=== PATIENT | female | born 1970 | race Hispanic/Latino ===

== ENCOUNTER 2017-05-31 10:38 | Emergency (ER) | payer SELFPAY ==
[2017-05-31] MEDS ORDERED: Acetaminophen 500 MG TAB ONE (11:47)
[2017-05-31 11:52] LABS: Bilirubin Small (Negative); Blood, Urine Moderate (Negative); Glucose, Urine (Dipstick) Negative (Negative); Ketone, Urine Negative (Negative); Nitrite Negative (Negative); Protein, Urine (Dipstick) 30 mg/dL (Neg-Trace)
[2017-05-31 11:54] LABS: Bacteria/HPF 2+ HPF (None Seen); Hyaline Casts/LPF 4-6 HYALINE CAST LPF (0-3 Hyaline)
[2017-05-31 12:20] LABS: #Eosinphils 0.1 thou/uL (0.0-0.7); #Lymphocytes 1.8 thou/uL (1.20-3.40); #Monocytes 0.7 thou/uL (0.11-0.59); #Neutrophils 8.8 thou/uL (1.40-6.50); %Basophils 0.3 % (0.0-1.0); %Eosinophils 0.8 % (0.0-10.0); %Lymphocytes 15.6 % (21.0-51.0); %Monocytes 6.3 % (0.0-10.0); Hematocrit 55.5 % (36.0-47.0); Mean Platelet Volume 7.9 fL (7.4-10.4); Red Blood Cell (RBC) Count 6.14 mill/uL (4.20-5.40); White Blood Cell (WBC) Count 11.4 thou/uL (4.8-10.8)
[2017-05-31 12:29] LABS: ALT (SGPT) 17 U/L (8-55); AST (SGOT) 14 U/L (5-34); Alkaline Phosphatase 105 U/L (40-150); Anion Gap 11 mmol/L (10-20); BUN (Urea Nitrogen) 11 mg/dL (7.0-18.7); Bilirubin, Total 0.8 mg/dL (0.2-1.2); Calc. Creatinine Clearance 0 mL/min (70-130); Calcium 9.1 mg/dL (7.8-10.44); Carbon Dioxide 33 mmol/L (22-29); Chloride 100 mmol/L (98-107); Estimated GFR-MDRD 89; Globulin 4.1 g/dL (2.4-3.5); Lipase 4 U/L (8-78); Protein, Total 7.8 g/dL (6.0-8.3)
== END 2017-05-31 13:55 | disposition home or self-care (01) ==
LOC: ERS 10:38
DX: S39.011A Strain of muscle, fascia and tendon of abdomen, initial encounter (principal); N39.0 Urinary tract infection, site not specified; G47.30 Sleep apnea, unspecified; Z79.899 Other long term (current) drug therapy; X58.XXXA Exposure to other specified factors, initial encounter
CPT/HCPCS: 36415; 80053; 81003; 81015; 83690; 84703; 85025; 99284

== ENCOUNTER 2017-08-15 08:18 | Emergency (ER) | payer SELFPAY ==
--- NOTE | 2017-08-15 09:07 | RAD ---
FRONTAL VIEW CHEST: Comparison: 12-16-15 Indication: Cough. FINDINGS: There is enlargement of the cardiac silhouette. Left lung base is obscured by the enlarged cardiac si lhouette. Otherwise, no obvious consolidation or significant effusion. There is mild vascular promine nce at each hilar region. IMPRESSION: Evidence of CHF. Obscuration of left lung base by the enlarged cardiac silhouette limits detail. POS: CELESTINO
[2017-08-15 09:56] LABS: #Eosinphils 0.1 thou/uL (0.0-0.7); #Lymphocytes 1.9 thou/uL (1.20-3.40); #Monocytes 0.4 thou/uL (0.11-0.59); #Neutrophils 5.7 thou/uL (1.40-6.50); %Basophils 0.5 % (0.0-1.0); %Monocytes 4.8 % (0.0-10.0); Hematocrit 54.5 % (36.0-47.0); Mean Platelet Volume 7.9 fL (7.4-10.4); Red Blood Cell (RBC) Count 6.09 mill/uL (4.20-5.40); White Blood Cell (WBC) Count 8.1 thou/uL (4.8-10.8)
[2017-08-15 09:59] LABS: ALT (SGPT) 18 U/L (8-55); AST (SGOT) 15 U/L (5-34); Alkaline Phosphatase 98 U/L (40-150); BUN (Urea Nitrogen) 9 mg/dL (7.0-18.7); Bilirubin, Total 0.8 mg/dL (0.2-1.2); Calc. Creatinine Clearance 0 mL/min (70-130); Calcium 9.2 mg/dL (7.8-10.44); Estimated GFR-MDRD 87; Globulin 3.6 g/dL (2.4-3.5); Protein, Total 7.1 g/dL (6.0-8.3)
[2017-08-15 10:05] LABS: Troponin I Less than 0.010 ng/mL (< 0.028)
[2017-08-15 10:08] LABS: Anion Gap 11 mmol/L (10-20); Carbon Dioxide 35 mmol/L (22-29); Chloride 100 mmol/L (98-107)
[2017-08-15] MEDS ORDERED: Furosemide 40 MG TAB ONE (10:47)
[2017-08-15] MEDS ORDERED: Benzonatate 100 MG CAP ONE (10:47)
== END 2017-08-15 11:25 | disposition home or self-care (01) ==
LOC: ERS 08:18
DX: I50.9 Heart failure, unspecified (principal); J06.9 Acute upper respiratory infection, unspecified; G47.30 Sleep apnea, unspecified; Z79.899 Other long term (current) drug therapy
CPT/HCPCS: 36415; 71010; 80053; 82553; 83880; 84484; 85025; 93005

== ENCOUNTER 2017-09-08 15:57 | Emergency (ER) | payer SELFPAY ==
[2017-09-08] MEDS ORDERED: Acetaminophen/Codeine 30-300mg Tablet ONE (17:01)
== END 2017-09-08 17:15 | disposition home or self-care (01) ==
LOC: ERS 15:57
DX: S39.011A Strain of muscle, fascia and tendon of abdomen, initial encounter (principal); G47.30 Sleep apnea, unspecified; X50.1XXA Overexertion from prolonged static or awkward postures, initial encounter
CPT/HCPCS: 99283

== ENCOUNTER 2018-01-20 08:23 | Emergency (ER) | payer SELFPAY ==
--- NOTE | 2018-01-20 09:03 | RAD ---
TWO VIEWS CHEST: Comparison: 09-26-16, 08-15-17 History: Cough. FINDINGS: Enlarged cardiac silhouette. Pulmonary vessels and hilum are normal. Costophrenic angles are clear. P atchy interstitial opacities. There is no pneumothorax or osseous abnormality. IMPRESSION: Patchy interstitial opacities suggesting edema or infiltrate. Continued surveillance. POS: [facility]
== END 2018-01-20 13:34 | disposition home or self-care (01) ==
LOC: ERS 08:23
DX: J30.9 Allergic rhinitis, unspecified (principal); I10 Essential (primary) hypertension; G47.30 Sleep apnea, unspecified
CPT/HCPCS: 71046

== ENCOUNTER 2018-08-03 09:24 | Inpatient (IN) | payer SELFPAY ==
[2018-08-03] MEDS ORDERED: methylPREDNISolone Sod Succ/PF 125 MG/2 ML VIAL ONE (09:40)
[2018-08-03] MEDS ORDERED: Water For Inject, Bacteriostat 30 ML ONE (09:40)
[2018-08-03 10:37] LABS: Hemoglobin 16.4 g/dL (12.0-16.0); Mean Corpuscular HGB CONC 30.6 g/dL (32.0-36.0); Mean Corpuscular Hemoglobin 28.4 pg (27.0-31.0); Mean Corpuscular Volume 92.9 fL (78.0-98.0); Mean Platelet Volume 8.6 fL (7.4-10.4); Platelet Count 189 thou/uL (130-400); RBC Distribution Width 15.5 % (11.5-14.5); Red Blood Cell (RBC) Count 5.78 mill/uL (4.20-5.40); White Blood Cell (WBC) Count 9.1 thou/uL (4.8-10.8)
[2018-08-03 10:42] LABS: ALT (SGPT) 14 U/L (8-55); AST (SGOT) 16 U/L (5-34); Albumin 3.4 g/dL (3.5-5.0); Alkaline Phosphatase 104 U/L (40-150); Anion Gap 14 mmol/L (10-20); BUN (Urea Nitrogen) 15 mg/dL (7.0-18.7); Bilirubin, Total 0.6 mg/dL (0.2-1.2); CK (CPK) 27 U/L (29-168); Calc. Creatinine Clearance 0 mL/min (70-130); Calcium 9.2 mg/dL (7.8-10.44); Carbon Dioxide 32 mmol/L (22-29); Chloride 99 mmol/L (98-107); Estimated GFR-MDRD 87; Glucose 106 mg/dL (70-105); Potassium 4.4 mmol/L (3.5-5.1); Protein, Total 7.4 g/dL (6.0-8.3); Sodium 141 mmol/L (136-145)
[2018-08-03 10:46] LABS: CKMB 1.7 ng/mL (0-6.6); Troponin I Less than 0.010 ng/mL (< 0.028)
--- NOTE | 2018-08-03 10:48 | RAD ---
CHEST ONE VIEW: INDICATIONS: History of chest congestion. COMPARISON: 01/20/2018. FINDINGS/IMPRESSION: There is cardiomegaly with pulmonary vascular congestion and perihilar edema. No pleural effusion or pneumothorax is evident. IMPRESSION: Findings suspicious for congestive heart failure. POS: CELESTINOH
[2018-08-03 10:59] LABS: #Lymphocytes 0.8 thou/uL (1.20-3.40); #Monocytes 0.6 thou/uL (0.11-0.59); #Neutrophils 7.8 thou/uL (1.40-6.50); %Basophils 0.1 % (0.0-1.0); %Eosinophils 0.3 % (0.0-10.0); %Lymphocytes 8.3 % (21.0-51.0); %Neutrophils 85.4 % (42.0-75.0); MDiff Complete? YES; Macrocytosis MODERATE=16-30 cells (100X) (0-5/hpf); PLT Morphology Comment Appears Adequate; Polychromasia MODERATE = 3-4 cells (100X) (0-2/hpf)
[2018-08-03 11:22] LABS: BHCG - Serum Negative (NEGATIVE); Pregs Control Background? CLEAR/WHITE (CLR/WHITE); Pregs Control Bar Appear? YES (CONTROL BAR)
[2018-08-03] MEDS ORDERED: Nitroglycerin 2% Ointment 1 INCH/1 GM Packet ONE (12:25)
[2018-08-03] MEDS ORDERED: Furosemide 40 MG/4 ML VIAL ONE ×2 (12:25→20:59)
--- NOTE | 2018-08-03 12:26 | CT ---
CTA THORAX WITH CONTRAST: DATE: 08/03/2018 TIME: 11:43 a.m. (Computed Tomographic Angiography, chest(noncoronary) with contrast material, and image post processi ng) (PE protocol) HISTORY: A 47-year-old female with dyspnea. COMPARISON: 09/26/2016 TECHNIQUE: IV injection of iodinated contrast: Isovue-370 100 mL. Scan acquisition timing attempted to coincide with iodinated contrast bolus reaching maximal density in pulmonary arteries. 3D MIP reconstructions. FINDINGS: There is no pulmonary thromboembolism in the pulmonic trunk or the left and right main pulmonary alexus nadiya or their proximal branches. The distal branches are difficult to evaluate because of body habit us. There is dilation of the pulmonic trunk and the left and right main pulmonary arteries, and the proximal branches, raising the possibility of pulmonary arterial hypertension. There is cardiomegaly with four chamber dilation. Again demonstrated are the numerous moderately enlarged mediastinal lym ph nodes. These have increased in size in the right paratracheal region. There are also mildly enla rged lymph nodes in the aortopulmonic window. Subcarinal lymphadenopathy has become worse. There is also mild bilateral hilar lymphadenopathy, right greater than left. Previously, there was a small l eft pleural effusion and a left lower lobe consolidation. Those are no longer present. Currently, n o pleural effusion or pneumothorax. There is a new finding of diffuse bilateral ground glass densiti es throughout both lungs, consistent with pulmonary interstitial edema. Ectasia and tortuosity of th e thoracic aorta without aneurysm. IMPRESSION: 1. Pulmonary interstitial edema and cardiomegaly are suggestive of congestive heart failure. 2. Interval worsening of mediastinal lymphadenopathy. 3. Dilated central pulmonary arteries, raising the possibility of pulmonary artery hypertension. Re commend clinical correlation. 4. No pulmonary thromboembolism identified. renetta[] POS: [facility]END[facility]
[2018-08-03 14:15] LABS: Troponin I Less than 0.010 ng/mL (< 0.028)
[2018-08-03] MEDS ORDERED: Ondansetron ODT 4 MG TAB PO PRN (15:50)
[2018-08-03] MEDS ORDERED: Acetaminophen 325 MG TAB PO PRN (15:50)
[2018-08-03] MEDS ORDERED: Iopamidol 370 76% 100 ML VIAL ONE (16:37)
[2018-08-03 17:32] LABS: Troponin I Less than 0.010 ng/mL (< 0.028)
[2018-08-03] MEDS: cefTRIAXone\\ROCEPHIN 2 GM in Sodium Chloride 0.9% 100 ML IVPB SCH (18:05)
[2018-08-03 18:18] VITALS: BMI 64.0
[2018-08-03] MEDS ORDERED: Furosemide 40 MG/4 ML VIAL SLOW IVP SCH (21:15)
[2018-08-03 21:39] LABS: Actual Bicarbonate (HCO3a) 40.9 mEq/L (22-28); Base Excess (BEa) 6.2 mEq/L (-2.0 to +3.0); CO2 Tension 118.8 mmHg (35.0-45.0); O2 Tension (PaO2) 67.2 mmHg (80.0-100.0); pH, Arterial 7.16 (7.35-7.45)
[2018-08-03 21:40] LABS: Analyzer IN Cardio OR; Calcium, Ionized 1.19 mmol/L (1.12-1.30); Carboxyhemoglobin (COHb) 2.5 gm% (0.0-3.0); Hemoglobin (Hb) 17.4 g/dL (12.0-16.0); Potassium - ABG Lab 4.32 mmol/L (3.70-5.30); Puncture Site RRA
[2018-08-03 22:16] LABS: Base Excess (BEa) 11.4 mEq/L (-2.0 to +3.0); Calcium, Ionized 1.21 mmol/L (1.12-1.30); Carboxyhemoglobin (COHb) 2.4 gm% (0.0-3.0); Hemoglobin (Hb) 16.6 g/dL (12.0-16.0); O2 Tension (PaO2) 76.6 mmHg (80.0-100.0); Potassium - ABG Lab 4.45 mmol/L (3.70-5.30); pH, Arterial 7.26 (7.35-7.45)
[2018-08-03 22:19] LABS: ALV-art Gradient 83.725 (0-20); CO2 Tension 99.9 mmHg (35.0-45.0); Puncture Site RRAD
--- NOTE | 2018-08-03 22:27 | PDOC.EVN ---
Event Note - Event Note Event Note: I was called to evaluate Courtney Persaud Patient was found to be in Resp. distress and desaturating in the 80's when patient falls asleep. When patient is awake, patient saturates around 90's. Patient was admitted for CHF exacerbation. Upon Evaluation Patient Vitals are 160/101 and patient is on a venti-mask. Patient is not using accessory muscles to breath as of yet but patient is clearly breathing through her mouth. Patient is Morbidly obese female. B/L 2+ L/ E edema. Rales in both lungs b/l. otherwise PE WNL Assessment and plan: - Acute hypercapnic and hypoxemic resp failure: ABG's ordered. CCU transfer. BIPAP ordered with setting of 20/12 per Pulm's recs. WIll monitor patient closely. Repeat ABG in 1hr to see it here is improvement in Acid base status. - CHF exacerbation: lasix given. will f/u morning labs. - OHS: continue with BIPAP. Check ABG's. continue current managment critical care time >35mins.
[2018-08-04 03:53] LABS: Actual Bicarbonate (HCO3a) 48.4 mEq/L (22-28); Base Excess (BEa) 14.4 mEq/L (-2.0 to +3.0); Calcium, Ionized 1.22 mmol/L (1.12-1.30); Carboxyhemoglobin (COHb) 2.3 gm% (0.0-3.0); Hemoglobin (Hb) 16.7 g/dL (12.0-16.0); O2 Tension (PaO2) 65.4 mmHg (80.0-100.0); Potassium - ABG Lab 4.38 mmol/L (3.70-5.30)
[2018-08-04 04:00] LABS: ALV-art Gradient 6.375 (0-20); CO2 Tension 113.7 mmHg (35.0-45.0); Puncture Site RRAD; pH, Arterial 7.25 (7.35-7.45)
[2018-08-04 04:34] LABS: BUN (Urea Nitrogen) 18 mg/dL (7.0-18.7); Calc. Creatinine Clearance 221 mL/min (70-130); Calcium 9.3 mg/dL (7.8-10.44); Estimated GFR-MDRD 84; Glucose 102 mg/dL (70-105)
[2018-08-04 04:43] LABS: Band 11 % (5-11); Hemoglobin 16.3 g/dL (12.0-16.0); Lymphocytes 8 % (21-51); MDiff Complete? YES; Mean Corpuscular HGB CONC 29.9 g/dL (32.0-36.0); Mean Corpuscular Hemoglobin 27.9 pg (27.0-31.0); Mean Corpuscular Volume 93.1 fL (78.0-98.0); Mean Platelet Volume 8.4 fL (7.4-10.4); Monocytes 6 % (0-10); Neutrophil 75 % (42-75); PLT Morphology Comment Appears Adequate; Platelet Count 200 thou/uL (130-400); RBC Distribution Width 15.6 % (11.5-14.5); Red Blood Cell (RBC) Count 5.87 mill/uL (4.20-5.40); White Blood Cell (WBC) Count 7.6 thou/uL (4.8-10.8)
[2018-08-04 04:44] LABS: Anion Gap 19 mmol/L (10-20); Carbon Dioxide 33 mmol/L (22-29); Chloride 96 mmol/L (98-107); Potassium 4.5 mmol/L (3.5-5.1); Sodium 143 mmol/L (136-145)
--- NOTE | 2018-08-04 07:51 | HP ---
CHIEF COMPLAINT: Sudden onset of cough with sputum. HISTORY OF PRESENT ILLNESS: This is a morbidly obese 47-year-old female with a history of congestive heart failure, hypertension, morbid obesity, and sleep apnea, presented to the ER with sudden onset of cough and shortness of breath. Family does report that with the coughing spells, the patient almost turns blue. The patient is not on any home oxygen. Over here, the patient has scattered wheezes and her O2 sats in low 80s. The patient denies any fever or even sensation of shortness of breath. Denied any nausea, vomiting, diarrhea, or any headaches. PAST MEDICAL HISTORY: Significant for morbid obesity, hypertension, sleep apnea , wears oxygen at night at home. PAST SURGICAL HISTORY: Significant for appendectomy, cholecystectomy, C- section x2, ovarian cyst removal several years ago. PSYCHIATRIC HISTORY: No previous psychiatric history. SOCIAL HISTORY: Denies any alcohol or drug abuse. She has no smoking history. ALLERGIES: THE PATIENT HAS NO KNOWN DRUG ALLERGIES. REVIEW OF SYSTEMS: CONSTITUTIONAL: The patient denies any chills or fever. HEENT: The patient complains of congestion and for details, please see HPI. RESPIRATORY: Complains of cough and wheezing, but no complaints of shortness of breath. CHEST: No complaints of chest pain or palpitations. GASTROINTESTINAL: Negative for any nausea, vomiting, diarrhea, or constipation. GENITOURINARY: Denies any complaints of dysuria or urgency. NEUROLOGIC: Denies any headache or mental status changes or any weaknesses or focal deficits. ALLERGIES: Denies any history of allergies. PHYSICAL EXAMINATION: VITAL SIGNS: Blood pressure 122/72, pulse 82, respiratory rate 20, and temperature 98.2. O2 saturation on room air was 71% and on 3 L was 100%. CONSTITUTIONAL: Vital signs reviewed. The patient is afebrile. Other than pulse ox is low on room air, rest is all within normal limits, morbid obesity. HEENT: Normocephalic and atraumatic head. External ears and tympanic membrane are within normal limits. Eyelids and conjunctivae are within normal limits. Pupils are round and reactive to light. NECK: Trachea is midline and within normal limit range of motions of the neck. RESPIRATORY/CHEST: Scattered wheezing all over, decreased air movement throughout. CARDIOVASCULAR: Regular rate and rhythm. No murmurs. No gallops. ABDOMEN: Soft, nontender, and nondistended. No masses. Positive bowel sounds. MUSCULOSKELETAL: No pedal edema. No pitting edema. No joint swelling or effusion. NEUROLOGIC: Within normal limits. Cranial nerves are within normal limits. No focal motor or sensory deficits noted. RADIOLOGY DATA: X-ray of the chest shows pulmonary edema. Chest CTA shows diffuse mediastinal lymphadenopathy, pulmonary edema, no signs of pneumonia. ASSESSMENT AND PLAN: 1. Acute on chronic congestive heart failure, systolic. Continue with the IV Lasix and strict Is and Os. 2. Possible upper respiratory infection. We will start on erythromycin IV and also Rocephin IV. The patient has failed outpatient Levaquin. 3. History of hypertension. We will hold lisinopril right now with a slight increase in her creatinine. We will follow up with creatinine and reintroduce her lisinopril as required. 4. Sleep apnea. We will order for nasal cannula oxygen p.r.n. to maintain the O2 sats over 92%. 5. Morbid obesity. Consult the patient again. 6. Weight gain. Consult for exercise and have the low-fat diet. 7. We will obtain an echocardiogram to evaluate the heart functions. 8. Influenza A and B are negative. Job ID: [id number] MTDD
[2018-08-04] MEDS: Enoxaparin Sodium 40 MG/0.4 ML SYRINGE SC SCH (08:08)
[2018-08-04] MEDS ORDERED: acetaZOLAMIDE Sodium 500 MG in Sodium Chloride 0.9% 50 ML IVPB SCH (09:00)
[2018-08-04] MEDS ORDERED: Furosemide 40 MG/4 ML VIAL SLOW IVP SCH (09:00)
--- NOTE | 2018-08-04 12:42 | CON ---
DATE OF CONSULTATION: 08/04/2018 35 minutes of critical care time. CONSULTING PHYSICIAN: Dr. Sommers. REASON FOR CONSULTATION: Hypercapnic respiratory failure. HISTORY OF PRESENT ILLNESS: This is a 47-year-old female with morbid obesity, who has been seen by my partner, Dr. Umanzor in the past. She has a known history of sleep apnea but has never undergone any type of diagnostic testing in the past secondary to her financial situation. She was last seen by our group a couple of years ago. She came in with a 2-day history of cough and shortness of breath. She was initially placed on telemetry. She was put on a Ventimask, but became sleepy. Blood gas was drawn showing severe hypercapnia with a pCO2 of 120. PAST MEDICAL HISTORY: 1. Probable KRANTHI. 2. Chronic hypoxic and hypercapnic respiratory failure. 3. Morbid obesity. 4. Community-acquired pneumonia. 5. Diabetes mellitus. 6. Gastroesophageal reflux. 7. Lower extremity edema. PAST SURGICAL HISTORY: , appendectomy, and ovarian resection. MEDICATIONS: Prior to admission; 1. Nasacort Allergy 24 two sprays each nostril daily as needed. 2. Potassium chloride 40 mEq daily. 3. Lisinopril 20 mg daily. 4. Furosemide 40 mg daily. 5. Albuterol HFA 2 puffs every 6 hours as needed. Current inpatient medications: 1. Tylenol. 2. DuoNeb. 3. Ceftriaxone. 4. Lovenox. 5. Lasix. 6. Ondansetron. ALLERGIES: NONE. FAMILY MEDICAL HISTORY: Unremarkable. SOCIAL HISTORY: Does not smoke. Does not consume alcohol. REVIEW OF SYSTEMS: Cannot be obtained. She is currently on BiPAP. PHYSICAL EXAMINATION: VITAL SIGNS: Temperature 99.2, pulse 56, blood pressure 136/103, and O2 sat 96% on BiPAP. GENERAL: The patient is easily awakened, does not appear to be in any distress on the BiPAP. HEENT: Class IV Mallampati airway. NECK: No JVD. LUNGS: Distant breath sounds. CARDIAC: S1 and S2. Regular. ABDOMEN: Morbidly obese. EXTREMITIES: Edematous. LABORATORY DATA: White blood cell count 7.6, hematocrit 54.6, and platelet count 200. PH of 7.25, pCO2 of 113, pO2 of 65, it was on BiPAP 25/15 with 30% FiO2. Sodium 143, potassium 4.5, chloride 96, CO2 of 33, BUN 18, creatinine 0.7, and glucose 102. BNP 315. ASSESSMENT: 1. Acute on chronic hypercapnic respiratory failure. This is probably secondary to Pickwickian syndrome, although it is noted that her serum bicarbonate is much less than would be predicted with this high of a pCO2. 2. Cor pulmonale. RECOMMENDATIONS: I do not think patient needs to be intubated. I will continue the BiPAP as needed throughout the day and definitely keep her on that at night. I would stop the Lasix and use Diamox instead. I will notify Dr. Umanzor of the patient's hospitalization. Job ID: [id number]
[2018-08-04] MEDS: cefTRIAXone\\ROCEPHIN 2 GM in Sodium Chloride 0.9% 100 ML IVPB SCH (16:33)
--- NOTE | 2018-08-04 19:18 | PDOC.PN ---
- Subjective Encounter Start Date: 08/04/18 Encounter Start Time: 19:00 Subjective: f/u for acute/chronic hypoxic/hypercapnic resp failure on previous -: BiPAP. Feels ok currently and less coughing. - Objective Resuscitation Status - Order Detail: 08/03/18 15:50 Resuscitation Status Routine Resuscitation Status: FULL: Full Resuscitation MAR Reviewed: Yes Vital Signs & Weight: Vital Signs (12 hours) Temp Pulse Resp Pulse Ox 08/04/18 18:34 93 L 08/04/18 18:29 67 20 93 L 08/04/18 16:00 98.7 F 08/04/18 14:11 67 27 H 92 L 08/04/18 12:00 98.8 F 08/04/18 11:04 59 L 17 96 08/04/18 08:00 100 08/04/18 07:25 47 L 91 L 08/04/18 07:24 47 L 18 91 L Weight Weight 328 lb Most Recent Monitor Data Heart Rate from ECG 57 NIBP 142/90 NIBP BP-Mean 107 Respiration from ECG 19 SpO2 92 I&O: 08/03/18 08/04/18 08/05/18 06:59 06:59 06:59 Intake Total 360 Output Total 1435 455 Balance -1435 -95 Result Diagrams: 08/04/18 04:06 08/04/18 04:06 Additional Labs: Microbiology 09/26/16 23:12 Venous blood - Left Hand Blood Culture - Preliminary Specimen has been received and culture in progress. No Growth to date. 09/26/16 23:06 Venous blood - Right Hand Blood Culture - Preliminary Specimen has been received and culture in progress. No Growth to date. Laboratory Tests 09/26/16 08/15/17 08/03/18 23:06 09:26 10:11 Hgb 16.4 H Hct 53.7 H Bicarbonate Actual ABG pH ABG pCO2 ABG pO2 ABG O2 Sat Calc/Karina Mode of Support Inspired O2 Peak Inspir Pressure PEEP or CPAP Carbon Dioxide 34 H B-Natriuretic Peptide 103.9 H 08/03/18 08/04/18 10:11 03:50 Hgb Hct Bicarbonate Actual 48.4 H ABG pH 7.25 L* ABG pCO2 113.7 H* ABG pO2 65.4 L ABG O2 Sat Calc/Karina 91.1 L Mode of Support BIPAP Inspired O2 30 Peak Inspir Pressure 25 PEEP or CPAP 15.0 Carbon Dioxide B-Natriuretic Peptide 315.0 H Radiology Reviewed by me: Yes (CTA chest - interstitial edema) EKG Reviewed by me: Yes (Tele - SR) Phys Exam - Physical Examination Constitutional: NAD alert, responsive HEENT: PERRLA, sclera anicteric, oral pharynx no lesions Neck: no nodes, no JVD, supple, full ROM diminished in bases S1, S2 Cardiovascular: RRR, no significant murmur, no rub, gallop obese Gastrointestinal: soft, non-tender, no distention, positive bowel sounds Musculoskeletal: pulses present, edema present Neurological: normal sensation, moves all 4 limbs Psychiatric: A&O x 3 Skin: normal turgor, cap refill <2 seconds Dx/Plan (1) Acute on chronic respiratory failure with hypoxia and hypercapnia Code(s): J96.21 - ACUTE AND CHRONIC RESPIRATORY FAILURE WITH HYPOXIA; J96.22 - ACUTE AND CHRONIC RESPIRATORY FAILURE WITH HYPERCAPNIA Status: Acute Comment : Continue Duonebs, Dulera, Mucinex, Solumedrol 40mg IV q6h (2) Acute diastolic CHF (congestive heart failure) Code(s): I50.31 - ACUTE DIASTOLIC (CONGESTIVE) HEART FAILURE Status: Acute (3) Morbid obesity with BMI of 60.0-69.9, adult Code(s): E66.01 - MORBID (SEVERE) OBESITY DUE TO EXCESS CALORIES; Z68.44 - BODY MASS INDEX (BMI) 60.0-69.9, ADULT Status: Chronic (4) KRANTHI (obstructive sleep apnea) Code(s): G47.33 - OBSTRUCTIVE SLEEP APNEA (ADULT) (PEDIATRIC) Status: Suspected Comment: Nocturnal CPAP with PEEP 5, FIO2 30% - Plan continue antibiotics, PT/OT, respiratory therapy, out of bed/ambulate, DVT proph w/SCDs Continue pulmonary support -: Diamox 500mg IV q12h -: BiPAP while sleeping -: CM assistance for home CPAP/BiPAP -: Continue Rocephin * .
[2018-08-04] MEDS: Sterile Water 10 ML VIAL FS SCH (22:00)
[2018-08-04] MEDS: acetaZOLAMIDE Sodium 500 mg Vial IVP SCH (22:00)
[2018-08-05] MEDS: Sterile Water 10 ML VIAL FS SCH ×2 (09:25→20:46)
[2018-08-05] MEDS: Enoxaparin Sodium 40 MG/0.4 ML SYRINGE SC SCH (09:25)
[2018-08-05] MEDS: acetaZOLAMIDE Sodium 500 mg Vial IVP SCH ×2 (09:25→20:45)
[2018-08-05] MEDS ORDERED: Furosemide 20 MG/2 ML VIAL SLOW IVP SCH (15:30)
--- NOTE | 2018-08-05 15:53 | PRG ---
DATE OF SERVICE: 08/05/2018 SERVICE: Pulmonary Medicine. INTERVAL HISTORY: The patient is doing great from a respiratory standpoint. Denies any current chest pain, fevers, or chills. There has been no interval change to her condition. PHYSICAL EXAMINATION: VITAL SIGNS: Afebrile, pulse 55, blood pressure 116/76, respirations 16, and saturation 98% on 2 L nasal cannula. GENERAL: The patient is awake, alert, in no apparent distress. LUNGS: Decent air entry. Dependent crackles are minimal. There is no prolonged expiratory phase. I do not appreciate any wheezing or rhonchi. HEART: Normal rate and regular. ABDOMEN: Soft, nontender, and nondistended. Bowel sounds are positive. MUSCULOSKELETAL: No cyanosis or clubbing. No pitting in the bilateral lower extremities. NEUROLOGIC: Grossly nonfocal. LABORATORY DATA: WBC 7.6, hemoglobin 16.3, and platelets 200,000. PH 7.25, pCO2 of 113, pO2 of 65. Basic metabolic profile is otherwise unremarkable. Troponin is negative x3. BNP previously 315. LFTs were unremarkable. Blood cultures x2 and influenza A and B are negative. IMAGING STUDIES: CTA of the chest demonstrates no evidence for pulmonary embolism. Interstitial edema and cardiomegaly are present. Mediastinal lymphadenopathy is noted. Pulmonary hypertension is likely. ASSESSMENT: 1. Chronic hypoxic and hypercapnic respiratory failure. 2. Morbid obesity. 3. Obesity hypoventilation syndrome. 4. Obstructive sleep apnea, likely life threatening. 5. Pulmonary hypertension, multifactorial. DISCUSSION AND PLAN: We will continue to diurese the patient through time. From my perspective, the patient is stable for transition out of the hospital provided that we should continue her BiPAP at night for the time being for her obstructive sleep apnea. Pulmonary Critical Care will continue to follow along while she remains in-house. Ultimately, she will require an autotitrating BiPAP on discharge from the hospital. I have counseled her regarding her weight. She understands that at this point her life, if she does not systematically start to lose weight, there is a very good possibility that she could from the weight. After talking about these things, she became quite tearful. She and her friend are both committed to her weight reduction moving forward. I have given her strategy for doing this. Job ID: [id number]
[2018-08-05] MEDS: cefTRIAXone\\ROCEPHIN 2 GM in Sodium Chloride 0.9% 100 ML IVPB SCH (16:21)
--- NOTE | 2018-08-05 18:22 | PDOC.PN ---
- Subjective Encounter Start Date: 08/05/18 Encounter Start Time: 17:30 Subjective: f/u for severe hypoxic/hypercapnic resp failure, KRANTHI on nocturnal BiPAP. -: Feels better overall and more alert. - Objective Resuscitation Status - Order Detail: 08/03/18 15:50 Resuscitation Status Routine Resuscitation Status: FULL: Full Resuscitation MAR Reviewed: Yes Vital Signs & Weight: Vital Signs (12 hours) Temp Pulse Resp Pulse Ox 08/05/18 16:00 98.2 F 08/05/18 14:38 55 L 16 98 08/05/18 12:00 98.0 F 08/05/18 10:35 100 08/05/18 10:34 63 18 100 08/05/18 08:00 97.7 F 97 08/05/18 06:43 48 L 08/05/18 06:42 48 L 24 H 97 Weight Weight 328 lb Most Recent Monitor Data Heart Rate from ECG 62 NIBP 147/102 NIBP BP-Mean 117 Respiration from ECG 21 SpO2 96 I&O: 08/04/18 08/05/18 08/06/18 06:59 06:59 06:59 Intake Total 660 440 Output Total 1435 1570 1445 Balance -1435 -910 -1005 Result Diagrams: 08/04/18 04:06 08/04/18 04:06 Additional Labs: Microbiology 09/26/16 23:12 Venous blood - Left Hand Blood Culture - Preliminary Specimen has been received and culture in progress. No Growth to date. 09/26/16 23:06 Venous blood - Right Hand Blood Culture - Preliminary Specimen has been received and culture in progress. No Growth to date. Laboratory Tests 09/26/16 08/15/17 08/03/18 23:06 09:26 10:11 Hgb 16.4 H Hct 53.7 H Bicarbonate Actual ABG pH ABG pCO2 ABG pO2 ABG O2 Sat Calc/Karina Mode of Support Inspired O2 Peak Inspir Pressure PEEP or CPAP Carbon Dioxide 34 H B-Natriuretic Peptide 103.9 H 08/03/18 08/04/18 10:11 03:50 Hgb Hct Bicarbonate Actual 48.4 H ABG pH 7.25 L* ABG pCO2 113.7 H* ABG pO2 65.4 L ABG O2 Sat Calc/Karina 91.1 L Mode of Support BIPAP Inspired O2 30 Peak Inspir Pressure 25 PEEP or CPAP 15.0 Carbon Dioxide B-Natriuretic Peptide 315.0 H EKG Reviewed by me: Yes (Tele - SR) Phys Exam - Physical Examination Constitutional: NAD HEENT: PERRLA, sclera anicteric, oral pharynx no lesions Neck: no nodes, no JVD, supple, full ROM diminished in bases Respiratory: no wheezing, no rales, no rhonchi, clear to auscultation bilateral S1, S2 Cardiovascular: RRR, no significant murmur, no rub, gallop Gastrointestinal: soft, non-tender, no distention, positive bowel sounds Musculoskeletal: pulses present, edema present Neurological: normal sensation, moves all 4 limbs Psychiatric: A&O x 3 Skin: normal turgor, cap refill <2 seconds Dx/Plan (1) Acute on chronic respiratory failure with hypoxia and hypercapnia Code(s): J96.21 - ACUTE AND CHRONIC RESPIRATORY FAILURE WITH HYPOXIA; J96.22 - ACUTE AND CHRONIC RESPIRATORY FAILURE WITH HYPERCAPNIA Status: Acute Comment : Continue Duonebs, O2 support with nocturnal BiPAP, outpt sleep study (2) Acute diastolic CHF (congestive heart failure) Code(s): I50.31 - ACUTE DIASTOLIC (CONGESTIVE) HEART FAILURE Status: Acute Comment: Likely primary pulmonary component, Diamox IV (3) Morbid obesity with BMI of 60.0-69.9, adult Code(s): E66.01 - MORBID (SEVERE) OBESITY DUE TO EXCESS CALORIES; Z68.44 - BODY MASS INDEX (BMI) 60.0-69.9, ADULT Status: Chronic Comment: Aggressive weight loss (4) KRANTHI (obstructive sleep apnea) Code(s): G47.33 - OBSTRUCTIVE SLEEP APNEA (ADULT) (PEDIATRIC) Status: Suspected Comment: Nocturnal BiPAP with PEEP 5, FIO2 30% - 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
[2018-08-06] MEDS: Enoxaparin Sodium 40 MG/0.4 ML SYRINGE SC SCH (08:32)
[2018-08-06] MEDS: Sterile Water 10 ML VIAL FS SCH (08:32)
[2018-08-06] MEDS: acetaZOLAMIDE Sodium 500 mg Vial IVP SCH (08:32)
[2018-08-06 16:43] VITALS: BP 119/82; TEMP 98.1
[2018-08-06] MEDS: cefTRIAXone\\ROCEPHIN 2 GM in Sodium Chloride 0.9% 100 ML IVPB SCH (17:26)
--- NOTE | 2018-08-06 23:03 | PRG ---
DATE OF SERVICE: 08/06/2018 SERVICE: Pulmonary Medicine. INTERVAL HISTORY: The patient is really doing quite well from respiratory standpoint. She is breathing much more comfortably. We will put in a consult for Case Management to discuss trying to get the patient a BiPAP through a care center. Otherwise, there has been no interval change in her condition. She is breathing very comfortably today. She is on 2 L of nasal cannula and her sats are at 88% to 92%. She is talking in full sentences. PHYSICAL EXAMINATION: VITAL SIGNS: Afebrile, pulse 72, blood pressure 119/82, respirations 18, and saturation on 3 L nasal cannula. GENERAL: The patient is awake, alert, and in no apparent distress. LUNGS: Excellent air entry. Minimal dependent crackles are present. There is no prolonged expiratory phase or wheezing appreciated. HEART: Normal rate, regular. ABDOMEN: Soft, nontender, nondistended. Bowel sounds are positive. MUSCULOSKELETAL: No cyanosis or clubbing. No pitting in bilateral lower extremities. NEUROLOGIC: Grossly nonfocal. ASSESSMENT: 1. Chronic hypoxic and hypercapnic respiratory failure. 2. Morbid obesity. 3. Obesity hypoventilation syndrome. 4. Obstructive sleep apnea, likely life-threatening. 5. Pulmonary hypertension. DISCUSSION AND PLAN: We are looking into different avenues to try to get the patient a eleni BiPAP. This will need to be on auto-titrating BiPAP machine. If she can acquire one, I will have her follow up with me in the outpatient setting. She is extremely high risk for repeat admission to the ICU as her chronic respiratory failure will be untreated in the outpatient setting. If she remains in-house, I will continue to follow. Job ID: [id number]
--- NOTE | 2018-08-07 13:40 | DIS ---
DATE OF ADMISSION: 08/03/2018 DATE OF DISCHARGE: 08/06/2018 DISCHARGE DIAGNOSES: 1. Acute on chronic hypoxic hypercapnic respiratory failure. 2. Acute diastolic congestive heart failure, improved. 3. Obesity hypoventilation syndrome. 4. Obstructive sleep apnea requiring BiPAP/CPAP. 5. Morbid obesity. CONSULTATIONS: Dr. Umanzor and Dr. Flor with Pulmonology Service. PERTINENT LAB AND X-RAY FINDINGS: CO2 level ranged between 32 to 33. Troponin I negative x3. BNP 315, previously noted 104 on 08/15/2017. CBC showed a white blood cell count ranged between 7.6 to 9.1, hemoglobin 16, and hematocrit 55. Blood culture x2 dated 08/03/2018 showed no growth at 48 hours. Influenza A and B antigen dated 08/03/2018, negative. Portable chest x-ray dated 08/03/2018, showed pulmonary vascular prominence and edema. CT angiogram of the chest dated 08/03/2018, showed pulmonary interstitial edema and cardiomegaly consistent with congestive heart failure. Pulmonary hypertension suspected. No evidence of pulmonary embolus. HOSPITAL COURSE: The patient was initially admitted to the Critical Care Unit after presenting with acute on chronic hypoxemic hypercapnic respiratory failure and associated acute on chronic diastolic congestive heart failure. The patient was placed on BiPAP noninvasive mechanical ventilation and given IV Lasix. The patient also received aggressive pulmonary supportive measures including IV antibiotics with erythromycin and Rocephin, as well as bronchodilator therapy. The patient's O2 saturations improved with BiPAP noninvasive mechanical ventilation. Due to the patient's severe obesity hypoventilation syndrome and obstructive sleep apnea, the patient continued on nocturnal and BiPAP noninvasive mechanical ventilation while sleeping or inactive. The patient continued general pulmonary supportive measures, transitioned from the Critical Care Unit to the medical floor. The patient was deemed appropriate candidate to pursue outpatient sleep study with eventual BiPAP/CPAP noninvasive mechanical ventilation. The patient was discontinued on Lasix therapy and given a trial of Diamox, tolerating without difficulty. Due to the patient's financial constraints and lack of resources, the patient was unable to secure BiPAP/CPAP noninvasive mechanical ventilation for home use prior to discharge. Current plans and recommendations are for outpatient followup with Pulmonology Service to establish sleep study. I have examined the patient at the time of discharge and discussed followup instructions. The patient verbalized understanding and in agreement and ready for discharge on 08/06/2018. DISCHARGE MEDICATIONS: 1. Lasix 40 mg p.o. daily. 2. Lisinopril 20 mg p.o. daily. 3. Potassium chloride 40 mEq p.o. daily. 4. Nasacort two sprays in each naris daily p.r.n. 5. Ventolin HFA two puffs inhaled q.6 hours p.r.n. FOLLOWUP: The patient will follow up with her primary care provider at [facility], Dr. Rui Ashley within 7 days of discharge. The patient will follow up with Dr. Nelson Umanzor with Pulmonology Service and to establish outpatient sleep study. CONDITION ON DISCHARGE: Fair. ACTIVITY: Ad-elza. DIET: Heart healthy. CODE STATUS: Full. DISPOSITION: Home on home oxygen at 2 L/minute by nasal cannula. TIME SPENT: Total time preparing and coordinating discharge is 32 minutes. Job ID: [id number]
== END 2018-08-06 18:17 | disposition home or self-care (01) | DRG 291 ==
LOC: ERS 09:24 → ERHOLD 12:33 → 2NO 17:48 → CCU 21:44 → T4-B 08-05 18:53
PROVIDERS: ADMIT Family Medicine; ATTEND Family Medicine
PROC: 5A09357 Assistance with Respiratory Ventilation, Less than 24 Consecutive Hours, Continuous Positive Airway Pressure (ICD-10-PCS; principal; 2018-08-03)
DX: I11.0 Hypertensive heart disease with heart failure (principal); J96.21 Acute and chronic respiratory failure with hypoxia; E66.2 Morbid (severe) obesity with alveolar hypoventilation; Z68.44 Body mass index [BMI] 60.0-69.9, adult; I50.33 Acute on chronic diastolic (congestive) heart failure; Z79.899 Other long term (current) drug therapy
CPT/HCPCS: 36415; 71045; 71275; 80048; 80053; 82553; 82805; 83880; 84484; 84703; 85007; 85025; 85027; 87040; 87804; 93005; 93306; 93798; 94640; 94660; 94760; 96374; 96375; A4216; J0696; J1120; J1650; J1940; J2930; J7050; J7620

== ENCOUNTER 2018-08-08 09:03 | Emergency (ER) | payer SELFPAY | END 2018-08-08 10:39 | disposition home or self-care (01) | LOC: ERS 09:03 | DX: R05 Cough (principal); R09.81 Nasal congestion; J35.1 Hypertrophy of tonsils; E66.9 Obesity, unspecified; I11.0 Hypertensive heart disease with heart failure; I50.9 Heart failure, unspecified; Z79.899 Other long term (current) drug therapy | CPT/HCPCS: 99281 ==

== ENCOUNTER 2018-09-29 19:40 | Emergency (ER) | payer SELFPAY | END 2018-09-29 19:56 | disposition left against medical advice (07) | LOC: ERS 19:40 | DX: Z53.21 Procedure and treatment not carried out due to patient leaving prior to being seen by health care provider (principal) ==

== ENCOUNTER 2018-12-05 17:39 | Emergency (ER) | payer SELFPAY ==
[2018-12-05] MEDS ORDERED: Dexamethasone 10 MG/ML VIAL ONE (19:56)
--- NOTE | 2018-12-05 20:06 | RAD ---
FExam: Chest one view HISTORY:Pharyngitis, pain, congestion Comparison: 08/03/2018 FINDINGS: Lungs: No masses or consolidation. Cardiac silhouette:Accentuated by portable technique. Stable to prior exam Pulmonary vessels: Normal Pleural Spaces: Clear Pneumothorax: None Osseous abnormalities: None of acuity. IMPRESSION: No acute cardiopulmonary process. Prominent cardiac silhouette. Correlate clinically.
== END 2018-12-05 20:21 | disposition home or self-care (01) ==
LOC: ERS 17:39
DX: J02.9 Acute pharyngitis, unspecified (principal); R09.82 Postnasal drip
CPT/HCPCS: 71045; 87081; 87430; J1100

== ENCOUNTER 2019-03-19 20:35 | Emergency (ER) | payer SELFPAY ==
[2019-03-19 21:20] LABS: #Basophils 0.1 thou/uL (0.0-0.2); #Eosinphils 0.1 thou/uL (0.0-0.7); #Lymphocytes 3.1 thou/uL (1.20-3.40); #Monocytes 0.6 thou/uL (0.11-0.59); #Neutrophils 5.7 thou/uL (1.40-6.50); %Basophils 0.8 % (0.0-1.0); %Eosinophils 1.1 % (0.0-10.0); %Lymphocytes 32.2 % (21.0-51.0); %Monocytes 5.9 % (0.0-10.0); Hemoglobin 11.2 g/dL (12.0-16.0); Mean Corpuscular HGB CONC 32.2 g/dL (32.0-36.0); Mean Corpuscular Hemoglobin 30.1 pg (27.0-31.0); Mean Corpuscular Volume 93.5 fL (78.0-98.0); Mean Platelet Volume 8.6 fL (7.4-10.4); Platelet Count 202 thou/uL (130-400); RBC Distribution Width 11.2 % (11.5-14.5); Red Blood Cell (RBC) Count 3.72 mill/uL (4.20-5.40); White Blood Cell (WBC) Count 9.5 thou/uL (4.8-10.8)
--- NOTE | 2019-03-19 21:20 | RAD ---
EXAM: Portable chest PROVIDED CLINICAL HISTORY: Chest pain COMPARISON: 12/05/2018 FINDINGS: Cardiac and mediastinal silhouette is within normal limits. No focal consolidation, pleural fluid or pneumothorax evident. IMPRESSION: No evidence for an acute cardiopulmonary process.
[2019-03-19 21:36] LABS: ALT (SGPT) 8 U/L (8-55); AST (SGOT) 11 U/L (5-34); Albumin 3.9 g/dL (3.5-5.0); Alkaline Phosphatase 68 U/L (40-150); Anion Gap 14 mmol/L (10-20); BUN (Urea Nitrogen) 28 mg/dL (7.0-18.7); Bilirubin, Total 0.4 mg/dL (0.2-1.2); Calc. Creatinine Clearance 0 mL/min (70-130); Calcium 9.7 mg/dL (7.8-10.44); Carbon Dioxide 24 mmol/L (22-29); Chloride 105 mmol/L (98-107); Estimated GFR-MDRD 59; Glucose 79 mg/dL (70-105); Potassium 3.5 mmol/L (3.5-5.1); Protein, Total 6.9 g/dL (6.0-8.3); Sodium 139 mmol/L (136-145)
--- NOTE | 2019-03-21 13:05 | EKG ---
Test Reason : CHEST PAIN Blood Pressure : / mmHG Vent. Rate : 054 BPM Atrial Rate : 054 BPM P-R Int : 166 ms QRS Dur : 086 ms QT Int : 452 ms P-R-T Axes : 036 059 017 degrees QTc Int : 428 ms Sinus bradycardia Left atrial enlargement Borderline ECG Confirmed by DARLENE MUNOZ, IMELDA Tate ([id number]), sound editor BELKYS CALLEJAS ([id number]) on 03/21/2019 1:05:09 PM Referred By: Confirmed By:IMELDA COLON MD
== END 2019-03-19 22:27 | disposition home or self-care (01) ==
LOC: ERS 20:35
DX: R07.89 Other chest pain (principal); I11.0 Hypertensive heart disease with heart failure; I50.9 Heart failure, unspecified; G47.30 Sleep apnea, unspecified; Z79.899 Other long term (current) drug therapy
CPT/HCPCS: 36415; 36416; 71045; 80053; 83880; 84484; 85025; 93005

== ENCOUNTER 2020-02-26 19:42 | Emergency (ER) | payer SELFPAY ==
[2020-02-26] MEDS ORDERED: Dexamethasone 10 MG/ML VIAL ONE (20:34)
[2020-02-26] MEDS ORDERED: Acetaminophen 500 MG TAB ONE (20:34)
--- NOTE | 2020-02-26 20:52 | RAD ---
Chest AP view INDICATION: History of cough and myalgias with concern for Covid infection. Pending Covid testing COMPARISON: March 19, 2019 FINDINGS: Lungs: The lungs are clear Cardiac silhouette: The cardiomediastinal silhouette appears within normal limits. Pulmonary vasculature: Normal Pleural spaces: No pleural effusion or pneumothorax is demonstrated. Upper abdomen: No abnormality seen. Osseous structures: No acute osseous abnormality. Additional findings: None. IMPRESSION: No acute cardiopulmonary abnormality.
== END 2020-02-26 21:31 | disposition home or self-care (01) ==
LOC: ERS 19:42
DX: J01.90 Acute sinusitis, unspecified (principal); I11.0 Hypertensive heart disease with heart failure; I50.9 Heart failure, unspecified; Z87.01 Personal history of pneumonia (recurrent); G47.30 Sleep apnea, unspecified; Z79.899 Other long term (current) drug therapy
CPT/HCPCS: 71045; 96372; J1100

== ENCOUNTER 2020-03-02 14:31 | Emergency (ER) | payer OTHER, SELFPAY ==
[2020-03-02] MEDS ORDERED: methylPREDNISolone Sod Succ/PF 125 MG/2 ML VIAL ONE (14:54)
[2020-03-02] MEDS ORDERED: Azithromycin 500 MG VIAL ONE (14:54)
[2020-03-02] MEDS ORDERED: cefTRIAXone\\ROCEPHIN 2 GM VIAL ONE (14:54)
--- NOTE | 2020-03-02 15:04 | RAD ---
Exam: Chest one view HISTORY:Fever. Shortness of breath. Positive COVID patient. Comparison: 02/29/2020 FINDINGS: Cardiac silhouette: Normal Aorta: Unremarkable Pulmonary vessels: Normal Costophrenic angles: Clear LUNGS: Patchy interstitial and alveolar opacities predominantly in the lung bases. Pneumothorax: None Osseous abnormalities: None IMPRESSION: Stable lung parenchymal opacification.
[2020-03-02 15:09] LABS: #Lymphocytes 1.2 thou/uL (1.20-3.40); #Monocytes 0.4 thou/uL (0.11-0.59); #Neutrophils 3.8 thou/uL (1.40-6.50); %Basophils 0.1 % (0.0-1.0); %Eosinophils 0.5 % (0.0-10.0); %Lymphocytes 22.1 % (21.0-51.0); %Monocytes 7.7 % (0.0-10.0); %Neutrophils 69.6 % (42.0-75.0); Hemoglobin 11.4 g/dL (12.0-16.0); Mean Corpuscular HGB CONC 33.3 g/dL (32.0-36.0); Mean Corpuscular Hemoglobin 29.7 pg (27.0-31.0); Mean Corpuscular Volume 89.3 fL (78.0-98.0); Mean Platelet Volume 7.1 fL (7.4-10.4); Platelet Count 216 thou/uL (130-400); RBC Distribution Width 11.4 % (11.5-14.5); Red Blood Cell (RBC) Count 3.83 mill/uL (4.20-5.40); White Blood Cell (WBC) Count 5.5 thou/uL (4.8-10.8)
[2020-03-02] MEDS ORDERED: Acetaminophen 500 MG TAB ONE (15:29)
[2020-03-02 15:36] LABS: ALT (SGPT) 13 U/L (8-55); AST (SGOT) 18 U/L (5-34); Albumin 3.6 g/dL (3.5-5.0); Alkaline Phosphatase 69 U/L (40-110); Anion Gap 14 mmol/L (10-20); BUN (Urea Nitrogen) 16 mg/dL (7.0-18.7); Bilirubin, Total 0.4 mg/dL (0.2-1.2); CK (CPK) 27 U/L (29-168); Calc. Creatinine Clearance 0 mL/min (70-130); Calcium 8.8 mg/dL (7.8-10.44); Carbon Dioxide 24 mmol/L (22-29); Chloride 102 mmol/L (98-107); Estimated GFR-MDRD 71; Globulin 3.4 g/dL (2.4-3.5); Glucose 96 mg/dL (70-105); Potassium 3.5 mmol/L (3.5-5.1); Sodium 136 mmol/L (136-145)
== END 2020-03-02 17:08 | disposition home or self-care (01) ==
LOC: ERS 14:31
DX: U07.1 COVID-19 (principal); J12.89 Other viral pneumonia; I11.0 Hypertensive heart disease with heart failure; I50.9 Heart failure, unspecified; Z79.899 Other long term (current) drug therapy
CPT/HCPCS: 71045; 80053; 82550; 83605; 84443; 84484; 85025; 87040; 93005; J0456; J0696; J2930

== ENCOUNTER 2020-05-20 08:51 | Outpatient (CLI) | payer OTHER ==
--- NOTE | 2020-05-20 09:16 | MMO ---
Bilateral MAMMO Bilat Screen [facility]. CLINICAL HISTORY: Patient is 49 years old and is seen for screening. The patient has no family history of breast cancer. The patient has no personal history of cancer. VIEWS: The views performed were: bilateral craniocaudal with tomosynthesis and bilateral mediolateral oblique with tomosynthesis. FILMS COMPARED: The present examination has been compared to a prior imaging study performed at [facility] on 07/06/2014. This study has been interpreted with the assistance of computer-aided detection. MAMMOGRAM FINDINGS: There are scattered fibroglandular densities. There are benign appearing calcifications seen in the left breast. There are no suspicious masses, suspicious calcifications, or new areas of architectural distortion. IMPRESSION: THERE IS NO MAMMOGRAPHIC EVIDENCE OF MALIGNANCY. A ROUTINE FOLLOW-UP MAMMOGRAM IN 1 YEAR IS RECOMMENDED. THE RESULTS OF THIS EXAM WERE SENT TO THE PATIENT. ACR BI-RADS Category 2 - Benign finding MAMMOGRAPHY NOTE: 1. A negative mammogram report should not delay a biopsy if a dominant of clinically suspicious mass is present. 2. Approximately 10% to 15% of breast cancers are not detected by mammography. 3. Adenosis and dense breasts may obscure an underlying neoplasm. Reported by: NOREEN BARRETT MD Electonically Signed: [id number]
== END 2020-05-20 08:52 | disposition home or self-care (01) ==
LOC: BICMAMMO 08:51
PROVIDERS: ATTEND Internal Medicine
DX: Z12.31 Encounter for screening mammogram for malignant neoplasm of breast (principal)
CPT/HCPCS: 77063; 77067

== ENCOUNTER 2020-09-24 14:48 | Emergency (ER) | payer OTHER ==
[2020-09-25 02:44] LABS: SARS-CoV-2 PCR by NAA Indeterminate (NotDetected)
== END 2020-09-24 15:05 | disposition home or self-care (01) ==
LOC: ERS 14:48
DX: R50.9 Fever, unspecified (principal); Z20.822 Contact with and (suspected) exposure to COVID-19; I11.0 Hypertensive heart disease with heart failure; I50.9 Heart failure, unspecified; G47.30 Sleep apnea, unspecified
CPT/HCPCS: 87635; 99283; U0003; U0005

== ENCOUNTER 2021-04-21 07:32 | Outpatient (CLI) | payer OTHER | END 2021-04-21 07:33 | disposition home or self-care (01) | LOC: BICULT 07:32 | PROVIDERS: ATTEND Nurse Practitioner Family | DX: R14.0 Abdominal distension (gaseous) (principal); R93.89 Abnormal findings on diagnostic imaging of other specified body structures; Z90.5 Acquired absence of kidney | CPT/HCPCS: 76856 ==

== ENCOUNTER 2021-05-22 10:53 | Outpatient (CLI) | payer OTHER | END 2021-05-22 10:54 | disposition home or self-care (01) | LOC: BICMAMMO 10:53 | PROVIDERS: ATTEND Nurse Practitioner Family | DX: Z12.31 Encounter for screening mammogram for malignant neoplasm of breast (principal) | CPT/HCPCS: 77063; 77067 ==

== ENCOUNTER 2021-12-08 09:42 | Emergency (ER) | payer OTHER ==
[2021-12-08 10:58] LABS: Bilirubin Negative (Negative); Blood, Urine Negative (Negative); Clarity Clear (Clear); Glucose, Urine (Dipstick) Normal (Negative); Ketone, Urine Negative (Negative); Leukocyte Negative Leu/uL (Negative); Nitrite Negative (Negative); Protein, Urine (Dipstick) Negative (Neg-Trace); Specific Gravity, Urine 1.029 (1.002-1.036); Urobilinogen Normal mg/dL (Less than 2)
[2021-12-08] MEDS ORDERED: Ketorolac Tromethamine 30 MG/ML VIAL ONE (11:05)
== END 2021-12-08 11:45 | disposition home or self-care (01) ==
LOC: ERS 09:42
DX: S39.012A Strain of muscle, fascia and tendon of lower back, initial encounter (principal); I11.0 Hypertensive heart disease with heart failure; I50.9 Heart failure, unspecified; G47.30 Sleep apnea, unspecified
CPT/HCPCS: 81003; 96372; 99283; J1885

== ENCOUNTER 2022-10-15 19:02 | Emergency (ER) | payer OTHER ==
[2022-10-15 22:55] LABS: #Basophils 0.1 thou/uL (0.0-0.2); #Eosinphils 0.1 thou/uL (0.0-0.7); #Monocytes 0.6 thou/uL (0.11-0.59); #Neutrophils 6.5 thou/uL (1.40-6.50); %Basophils 0.6 % (0.0-1.0); %Eosinophils 0.8 % (0.0-10.0); %Lymphocytes 29.3 % (21.0-51.0); %Monocytes 5.8 % (0.0-10.0); %Neutrophils 63.5 % (42.0-75.0); Hemoglobin 12.9 g/dL (12.0-16.0); Mean Corpuscular Hemoglobin 29.6 pg (27.0-31.0); Mean Corpuscular Volume 92.6 fl (78.0-98.0); Mean Platelet Volume 7.7 fL (7.4-10.4); Platelet Count 239 10x3/uL (130-400); RBC Distribution Width 12.6 % (11.5-14.5); Red Blood Cell (RBC) Count 4.36 mill/uL (4.20-5.40); White Blood Cell (WBC) Count 10.2 10x3/uL (4.8-10.8)
[2022-10-15 22:58] LABS: BHCG - Serum Negative (NEGATIVE); Pregs Control Background? CLEAR/WHITE (CLR/WHITE); Pregs Control Bar Appear? YES (CONTROL BAR)
[2022-10-15 23:12] LABS: Bilirubin Negative (Negative); Blood, Urine Negative (Negative); Clarity Clear (Clear); Glucose, Urine (Dipstick) Normal (Negative); Ketone, Urine Negative (Negative); Leukocyte Negative Leu/uL (Negative); Nitrite Negative (Negative); Protein, Urine (Dipstick) 20 mg/dL (Neg-Trace); Specific Gravity, Urine 1.032 (1.002-1.036)
[2022-10-15 23:17] LABS: ALT (SGPT) 11 U/L (8-55); AST (SGOT) 12 U/L (5-34); Albumin 3.8 g/dL (3.5-5.0); Alkaline Phosphatase 76 U/L (40-110); Anion Gap 13 mmol/L (10-20); BUN (Urea Nitrogen) 15 mg/dL (9.8-20.1); Bilirubin, Total 0.5 mg/dL (0.2-1.2); Calc. Creatinine Clearance 0 mL/min (70-130); Calcium 9.2 mg/dL (7.8-10.44); Carbon Dioxide 27 mmol/L (22-29); Chloride 106 mmol/L (98-107); Estimated GFR 84; Glucose 100 mg/dL (70-105); Protein, Total 6.8 g/dL (6.0-8.3); Sodium 142 mmol/L (136-145)
[2022-10-16] MEDS ORDERED: Ketorolac Tromethamine 30 MG/ML VIAL ONE (01:09)
[2022-10-16] MEDS ORDERED: Iopamidol 370 76% 100 ML VIAL ONE (09:31)
== END 2022-10-16 02:55 | disposition home or self-care (01) ==
LOC: ERS 19:02
DX: M79.652 Pain in left thigh (principal); K43.9 Ventral hernia without obstruction or gangrene; I11.0 Hypertensive heart disease with heart failure; I50.9 Heart failure, unspecified; Z79.899 Other long term (current) drug therapy
CPT/HCPCS: 36415; 74177; 80053; 81003; 84703; 85025; 96374; J1885; Q9967

== ENCOUNTER 2024-02-04 19:01 | Emergency (ER) | payer OTHER ==
[~2024-02-04 19:01] MED LIST: Iopamidol-370 76% 500 ML MDV (1 ML CHARGE) ONE
[2024-02-04] MEDS ORDERED: Pantoprazole 40 MG VIAL ONE (19:50)
[2024-02-04] MEDS ORDERED: Famotidine/PF 20 mg/2ml Vial ONE (19:52)
[2024-02-04] MEDS ORDERED: Ondansetron PF 4 MG/2 ML Vial ONE (19:58)
[2024-02-04 20:24] LABS: #Basophils 0.04 10x3/uL (0.0-0.2); %Basophils 0.4 % (0.0-1.0); %Eosinophils 0.8 % (0.0-10.0); %Lymphocytes 22.5 % (21.0-51.0); %Monocytes 6.5 % (0.0-10.0); %Neutrophils 69.6 % (42.0-75.0); Hematocrit 42.3 % (36.0-47.0); Hemoglobin 13.9 g/dL (12.0-16.0); Mean Corpuscular HGB CONC 32.9 g/dL (32.0-36.0); Mean Corpuscular Hemoglobin 29.1 pg (27.0-31.0); Mean Corpuscular Volume 88.5 fL (78.0-98.0); Mean Platelet Volume 10.2 fL (7.4-10.4); Platelet Count 258 10x3/uL (130-400); RBC Distribution Width 13.1 % (11.5-14.5); Red Blood Cell (RBC) Count 4.78 mill/uL (4.20-5.40)
[2024-02-04 20:46] LABS: ALT (SGPT) 13 U/L (8-55); AST (SGOT) 12 U/L (5-34); Albumin 3.6 g/dL (3.5-5.0); Alkaline Phosphatase 101 U/L (40-110); Anion Gap 14 mmol/L (10-20); BUN (Urea Nitrogen) 13 mg/dL (9.8-20.1); Bilirubin, Total 0.4 mg/dL (0.2-1.2); Calc. Creatinine Clearance 0 mL/min (70-130); Calcium 9.5 mg/dL (7.8-10.44); Carbon Dioxide 28 mmol/L (22-29); Chloride 105 mmol/L (98-107); Estimated GFR 77; Globulin 3.9 g/dL (2.4-3.5); Glucose 122 mg/dL (70-105); Lipase 12 U/L (8-78); Potassium 3.6 mmol/L (3.5-5.1); Protein, Total 7.5 g/dL (6.0-8.3); Sodium 143 mmol/L (136-145); Troponin I Less than 0.010 ng/mL (< 0.028)
[2024-02-04 21:17] LABS: Bacteria/HPF 1+ HPF (None Seen); Bilirubin Negative (Negative); Blood, Urine Negative (Negative); CAUTI Indications for Culture Pelvic or flank pain; Clarity Clear (Clear); Glucose, Urine (Dipstick) Normal (Negative); Ketone, Urine Negative (Negative); Leukocyte Negative Leu/uL (Negative); Nitrite Negative (Negative); Protein, Urine (Dipstick) Negative (Neg-Trace); RBC/HPF None Seen HPF (0-3); Specific Gravity, Urine 1.026 (1.002-1.036); Squamous Epithelial 0-3 HPF (0-3); Urobilinogen Normal mg/dL (Less than 2)
[2024-02-04 21:19] LABS: Urine Culture Reflex No No
== END 2024-02-04 23:22 | disposition home or self-care (01) ==
LOC: ERS 19:01
DX: K76.0 Fatty (change of) liver, not elsewhere classified (principal); K43.9 Ventral hernia without obstruction or gangrene; I11.0 Hypertensive heart disease with heart failure; I50.9 Heart failure, unspecified
CPT/HCPCS: 36415; 74177; 80053; 81001; 83690; 84484; 85025; 93005; 96374; 96375; C9113; J2405; Q9967; S0028